=== PATIENT | male | born 1975 | race Caucasian/White ===

== ENCOUNTER 2025-08-09 06:16 | Day surgery (SDC) | payer BC, SELFPAY | END 2025-08-09 12:34 | disposition home or self-care (01) | LOC: GI 06:16 | PROVIDERS: ATTENDING PHYSICIAN Internal Medicine Gastroenterology | DX: K21.00 Gastro-esophageal reflux disease with esophagitis, without bleeding (principal); K44.9 Diaphragmatic hernia without obstruction or gangrene | CPT/HCPCS: 43239; 88305; 88342 ==